=== PATIENT | male | born 1995 | race Caucasian/White ===

== ENCOUNTER 2019-06-18 23:34 | Observation (INO) ==
--- OUTSIDE RECORDS SUMMARY | 2019-06-18 23:37 | External Medical Summary | Continuity of Care Document ---
:1995 Author Name Lela Bashir, Provider Address Unavailable Unavailable , Care Team Providers Name Role Phone [facility], Nursing Station Unavailable [email or web address] PCP, UNKNOWN Unavailable Unavailable Problems Active medical history not documented Allergies and Adverse Reactions Allergy history not documented Medications Medications not documented Procedures Procedures not documented Immunizations Immunizations not documented Plan of Treatment Planned Observations Planned Goals not documented Results No Known Results Results not documented Encounters Appointment; [facility] Nursing Station 31-Jul-2018 11:45 Encounter Diagnosis: Problem not documented Appointment; [facility], Nursing Station 30-Jun-2018 9:20 Encounter Diagnosis: Problem not documented Appointment; [facility], Nursing Station 06-Sep-2018 11:30 Encounter Diagnosis: Problem not documented
[2019-06-18] MEDS ORDERED: SODIUM CHLORIDE 0.9% 1000ML 1,000 ML IV ONE ×2 (23:58→23:59)
[2019-06-19 00:25] LABS: Base Excess VBG -0.4 mEq/L; Basophils # (auto) 0.02 K/uL (0-0.2); Basophils % (auto) 0.2 %; Eosinophils # (auto) 0.07 K/uL (0-0.5); Eosinophils % (auto) 0.8 %; HCO3 VBG 24 mmol/L; Hematocrit (blood only) 36.3 % (42-52); Immature Granulocytes # (auto) 0.03 K/uL (0.00-0.02); Immature Granulocytes % (auto) 0.3 %; Lymphocytes # (auto) 2.49 K/uL (1.2-3.4); Lymphocytes % (auto) 27.8 %; Mean Corpuscular Hgb Conc 35.8 g/dL (32-36); Mean Corpuscular Volume 88.3 fL (80-100); Mean Platelet Volume 10.6 fL (7.4-10.4); Monocytes # (auto) 0.52 K/uL (0.11-0.59); Monocytes % (auto) 5.8 %; Neutrophils # (auto) 5.83 K/uL (1.4-6.5); Neutrophils % (auto) 65.1 %; Oxygen Saturation VBG 91.7 %; PCO2 VBG 40 mmHg (38-50); PO2 VBG 65 mmHg; Platelet Count 234 K/uL (130-400); RDW Coefficient of Variation 12.1 % (11.5-14.5); RDW Standard Deviation 38.9 fL (36.4-46.3); Red Blood Count 4.11 M/uL (4.7-6.1); White Blood Count 8.96 K/uL (4.8-10.8); pH VBG 7.41 (7.36-7.41)
[2019-06-19 00:43] LABS: Alanine Aminotransferase 16 U/L (12-78); Albumin Level 3.8 gm/dl (3.4-5.0); Aspartate Aminotransferase 10 U/L (15-37); Bilirubin Direct < 0.1 mg/dl (0-0.2); Blood Urea Nitrogen 13 mg/dl (7-18); Calcium 7.7 mg/dl (8.5-10.1); Carbon Dioxide 25 mmol/L (21-32); Chloride 103 mmol/L (98-107); Creatinine Clr Calc Pharmacy 100.7 ml/min; Est GFR (African American) 103.8; Est GFR (Non-African American) 89.5; Glucose 234 mg/dl (70-99); Magnesium 1.5 mg/dl (1.8-2.4); Potassium 3.2 mmol/L (3.5-5.1); Sodium 138 mmol/L (136-145)
[2019-06-19 00:46] LABS: D Dimer < 190 ug/L FEU (0-500)
[2019-06-19 00:54] LABS: Alkaline Phosphatase 51 U/L (45-117); Bilirubin,Total 0.2 mg/dl (0.2-1); Creatine Kinase 100 U/L (39-308); Total Protein 6.7 gm/dl (6.4-8.2); Troponin I < 0.015 ng/ml (0-0.045)
[2019-06-19] MEDS ORDERED: SODIUM CHLORIDE 0.9% 1000ML 1,000 ML IV ONE (01:04)
[2019-06-19] MEDS ORDERED: MAGNESIUM SULFATE / D5W 1 GM/100 ML BAG IV STA ×2 (02:29→04:44)
[2019-06-19] MEDS ORDERED: POTASSIUM CHLORIDE 20 MEQ TABCR PO STA (02:29)
[2019-06-19] MEDS ORDERED: SODIUM CHLORIDE 0.9% 1000ML 1,000 ML IV SCH (03:08)
[2019-06-19] MEDS ORDERED: ONDANSETRON INJ 2 MG/ML 2 ML VIAL IV PRN (03:08)
[2019-06-19] MEDS ORDERED: ACETAMINOPHEN 325 MG TAB PO PRN (03:08)
[2019-06-19] MEDS ORDERED: NITROGLYCERIN SL 0.4 MG/TAB TAB SL PRN (03:08)
--- NOTE | 2019-06-19 04:03 | History and Physical Report ---
DATE OF ADMISSION: 06/19/2019 CHIEF COMPLAINT: Weakness, palpitations, near syncope. HISTORY OF PRESENT ILLNESS: This is a 23-year-old male with no significant past medical history, who around 10:00 p.m. last night felt nauseous, not feeling well, palpitations, near passing out, and came to the ER and he was found to be tachycardic, heart rate in the 130s, blood pressure was slightly elevated, and he was afebrile, saturating fine. No leukocytosis. Hemoglobin 13. Venous blood gas was okay. Potassium was 3.2 and magnesium was 1.5, but lactate was 3.1. Blood sugar was 234 and after about 2 liters of fluids, his tachycardia improved and he is currently hemodynamically stable, feeling better. The patient says he drank about 4 bottles of sodas today and he generally does not drink sodas and it has caffeine in it and they were regular sodas. He thinks he might have been dehydrated. Denies any fever, chills. No chest pain, no shortness of breath, no cough, no headache. During the episode, he felt slightly dizzy. No blurred visions. No earache, no runny nose, no sore throat, no difficulty swallowing. Appetite is okay. Normal bowel and bladder movements. Denies any hematuria or dysuria. No hematochezia or black stools. No swelling in the legs, no rash. No family history of diabetes. ALLERGIES: No known drug allergies. PAST MEDICAL HISTORY: None. PAST SURGICAL HISTORY: None. FAMILY HISTORY: Grandfather had cancer. SOCIAL HISTORY: No smoking, alcohol rarely. REVIEW OF SYSTEMS: As per HPI. Rest of the review of systems negative. PHYSICAL EXAMINATION: GENERAL: The patient is of moderate build, not in acute distress. VITAL SIGNS: Temperature 36.7, pulse 90, respiratory rate 20, blood pressure 120/64, oxygen 98% on room air. HEENT: No pallor, no icterus. Pupils are equal, round, reactive to light. NECK: No JVD, no neck masses, no carotid bruits. CARDIOVASCULAR: S1, S2 heard, regular rate and rhythm, no murmur, no gallop. RESPIRATORY SYSTEM: Normal AP diameter. No accessory muscle use. No wheezing, no crackles. ABDOMEN: Soft, bowel sounds present, nontender. No distention. CENTRAL NERVOUS SYSTEM: Cranial nerves II-XII grossly intact. Nonfocal. EXTREMITIES: No edema, no erythema. LABORATORY DATA: WBC 8.9, hemoglobin 13, hematocrit 36.3, platelets 234. D-dimer less than 190. Venous blood gas, pH of 7.4, pCO2 of 40, pO2 of 65, bicarbonate 24, oxygen 91%. Sodium 138, potassium 3.2, chloride 103, bicarbonate 25, BUN 13, creatinine 1.1, serum glucose 234. Lactate 3.1, calcium 7.7, magnesium 1.5, total bilirubin 0.2, direct bilirubin less than 0.1, AST 10, ALT 16, alkaline phosphatase 51, total creatinine kinase 100. Troponin I less than 0.015. TSH 1.5. IMAGING DATA: Chest x-ray: No acute findings. EKG: Sinus tachycardia with a short NE at the rate of 143, incomplete right bundle branch block, no previous EKGs available. ASSESSMENT AND PLAN: This is a 23-year-old male who presents with weakness, tachycardia, near syncope. 1. Tachycardia, near syncope, weakness, nausea. Symptoms improved after 2 L of IV fluids in the ER. Hemodynamically currently stable. Continue normal saline at 125 mL per hour. He says he drank about 4 bottles of regular soda today and he does not drink them usually, which has caffeine in it. Caffeine induced tachycardia?. We will also check urine drug screen. Lactic acid elevated at 3.1. We will follow the repeat lactic acid. Doesn't seem to having infection. We will hold the antibiotics for now. We will monitor in the med/surg tele. 2. Elevated lactic acid, etiology unclear at this time. It could be from from tachycardia.On IV fluids. We will follow the repeat levels and closely monitor. 3. Hyperglycemia, blood sugar 231. He says there is no family history of diabetes. The patient says he drank 4 bottles of regular soda. We will place him on diabetic diet. Follow hemoglobin A1c levels. 4. Anemia. Hb 13.Borderline low. No obvious bleeding. Normal MCV.Will follow Hemoccult stool and iron studies, vitamin b12 and folate levels.. 4. Deep venous thrombosis prophylaxis, sequential compression devices. DISPOSITION: Observation in med/surg tele. Level 1 full code. Expect to discharge home and follow with his family doctor. Level 1 full code. MTDD
--- NOTE | 2019-06-19 04:37 | Emergency Department Note ---
Entered by Eyal Rendon acting as a scribe for ED Provider Note Name: Pawan Mike Age: 23, male Arrives Via: Walk in Informant: Patient CC: Weakness HPI: The patient is a 23 year old male who presents to the emergency department with complaints of constant weakness beginning at 2200 tonight. The patient states that he became weak and lightheaded tonight at 2200 when he was sitting down and watching a video. He notes that he feels as though he is going to lose consciousness. He also complains of some mild chest pain. He reports that he has not had any similar symptoms in the past. He denies any rhinorrhea, fevers, SOB, and abdominal pain. The patient states that he drank a lot of soda today, but he denies any caffeine pill use. He notes that he was drinking alcohol this weekend, but he reports that he did not drink any more than usual. He denies any drug use, smoking, and he states that he has not been working out recently. He notes that he does not have any family history of diabetes and thyroids disorders. ROS: See above HPI for pertinent positives & negatives. A total of 10 systems reviewed and were otherwise negative. Past Medical History: None Past Surgical History: None Family History: None Social History: Drinks alcohol, does not smoke cigarettes or do drugs Home Medications: None Allergies: None Physical: Vitals: BP 150/80, Pulse 139, Resp 18, Temp 98.1 F, O2 Sat 98 Exam: GENERAL: Patient is unwell appearing and in mild distress, mildly anxious appearing. EYES: No scleral icterus, unremarkable pupils. ENT: Mucous membranes dry, no nasal congestion. NECK: No masses appreciated, no meningismus, trachea is midline. RESPIRATORY: No dyspnea. Clear to auscultation and equal bilaterally. No wheeze, no rhonchi. CARDIOVASCULAR: Regular rhythm and tachycardic. No murmurs, rubs, gallops appreciated. GASTROINTESTINAL: Abdomen soft, non-tender, no peritonitis. Bowel sounds positive. No masses appreciated. BACK: No midline tenderness, no CVA tenderness EXTREMITIES: Normal motion all extremities, no cyanosis, no edema. NEUROLOGIC: Alert and oriented, no acute motor or sensory deficits, no focal weakness, cranial nerves grossly intact. SKIN: No rash, no jaundice, no diaphoresis. ED Course: Prior Medical Record, Triage/Nursing Notes, Medications, Allergies reviewed by Me 2354: The patient was evaluated in room A12. A complete history and physical exam was performed. 0037: I reevaluated and updated the patient. He is starting to feel a little better. His heart rate is down to the 110s from the 140s earlier. He has no other complaints. 0101: Upon reevaluation, the patient is stable. I discussed the findings and the treatment plan with the patient. He expresses agreement and understanding. [facility] The patient will be evaluated for further management. Vital Signs: reviewed and remarkable for wnl Labs: Reviewed and remarkable for lactic acidosis, hyperglycemia Interventions: saline lock, nss bolus 3 L IV Imaging: X ray results are stated below per my interpretation: Chest: 1 view: No infiltrate, no effusion, normal cardiac border. EKG: Per My Interpretation: Indication Tachycardia: Sinus Tach 143 no ectopy no ischemia. No previous for comparison Consults: 0101: I reviewed the patient's case with Dr. Patino - Hospitalist, [facility]. He will evaluate the patient for further management. Blood pressure: Elevated - Berino to be Situation. Disposition: Hospitalization Differentials: Differential: NSR, SVT, PACs, PVCs, Cardiac Dysrhythmia, Endocrine Dysfunction, Electrolyte/Metabolic Abnormality, Pulmonary Embolism, Infectious, GI, amongst other pathologies Entertained. Medical Decision Making: Pleasant 23 yr old male ill appearing, tachycardic and dehydrated. EKG with sinus tach. Given 3 L NSS bolus and HR finally improving. Labs with elevated lactate though no fevers, wbc elevation nor clear evidence of infection so will hold on abx. May be dehydration related. I do not feel this is SVT nor is there evidence of PE. Glucose elevated of uncertain etiology and may be stress response, though new onset DM possible. Will hold on insulin given fluid hydration. VBG looks OK and I think he is not in dka. Hospitalist to evaluate further. Impression: Generalized weakness, lactic acidosis, tachycardia, hyperglycemia Jared Linda MD The scribe's documentation has been prepared under my direction and personally reviewed by me in its entirety. I confirm that the note above accurately reflects all work, treatment, procedures, and medical decision making performed by me. 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: Yes Beliefs That Will Affect Care: None Current Living Situation: Parent Other Information That Helps Us Care for You: No Feels Safe at Home: Yes Safety Concerns: Feels Safe At This Time Smoking Status: Never smoker Do You Dip or Chew Tobacco: No ; Hx Alcohol Use: Yes Alcohol type: beer and hard liquor Hx Substance Use: No Results & Data Vital Signs Vital Signs - 24 hr 06/18/19 23:42 06/19/19 00:16 06/19/19 01:21 Temperature 36.7 C Temperature Source Oral Sepsis Recent Fever Within 48 Hours No Sepsis Action Taken by Nursing No Action Required Pulse Rate 139 H Pulse Rate [Right] 127 H 90 Pulse Rhythm [Right] Regular Regular Pulse Strength [Right] Normal Normal Respiratory Rate 18 20 20 Respiratory Effort / Characteristics Non-Labored Non-Labored Spontaneous Non-Labored Spontaneous Respiratory Depth Normal Normal Normal Blood Pressure 150/80 H Blood Pressure [Right Arm] 123/75 123/64 Blood Pressure Mean 103 Blood Pressure Mean [Right Arm] 91 83 Pulse Oximetry 98 98 98 Oxygen Delivery Method Room Air Room Air Room Air Home Medications Current Medication List: was personally reviewed by me Laboratory Data Attestation: I reviewed the patient's lab results. Result diagrams: 06/19/19 00:05 06/19/19 00:05 Lab Results 06/19/19 06/19/19 06/19/19 Range/Units 00:05 00:05 00:05 WBC 8.96 (4.8-10.8) K/uL RBC 4.11 L (4.7-6.1) M/uL Hgb 13.0 L (14.0-18.0) g/dL Hct 36.3 L (42-52) % MCV 88.3 (80-100) fL MCH 31.6 (25-34) pg MCHC 35.8 (32-36) g/dL RDW Std Deviation 38.9 (36.4-46.3) fL RDW Coeff of [place] 12.1 (11.5-14.5) % Plt Count 234 (130-400) K/uL MPV 10.6 H (7.4-10.4) fL Immature Gran % (Auto) 0.3 % Neut % (Auto) 65.1 % Lymph % (Auto) 27.8 % [place] % (Auto) 5.8 % Eos % (Auto) 0.8 % Baso % (Auto) 0.2 % Immature Gran # (Auto) 0.03 H (0.00-0.02) K/uL Neut # (Auto) 5.83 (1.4-6.5) K/uL Lymph # (Auto) 2.49 (1.2-3.4) K/uL [place] # (Auto) 0.52 (0.11-0.59) K/uL Eos # (Auto) 0.07 (0-0.5) K/uL Baso # (Auto) 0.02 (0-0.2) K/uL D-Dimer < 190 (0-500) ug/L FEU VBG pH (7.36-7.41) VBG pCO2 (38-50) mmHg VBG pO2 mmHg VBG HCO3 mmol/L VBG O2 Saturation % VBG Base Excess mEq/L Sodium 138 (136-145) mmol/L Potassium 3.2 L (3.5-5.1) mmol/L Chloride 103 (98-107) mmol/L Carbon Dioxide 25 (21-32) mmol/L Anion Gap 10.0 (3-11) BUN 13 (7-18) mg/dl Creatinine 1.16 (0.6-1.4) mg/dl Est Cr Clr Drug Dosing 100.7 ml/min Est GFR ( Amer) 103.8 Est GFR (Non-Af Amer) 89.5 BUN/Creatinine Ratio 11.0 (10-20) Glucose 234 H (70-99) mg/dl Lactate (0.4-2.0) mmol/L Calcium 7.7 L (8.5-10.1) mg/dl Magnesium 1.5 L (1.8-2.4) mg/dl Total Bilirubin 0.2 (0.2-1) mg/dl Direct Bilirubin < 0.1 (0-0.2) mg/dl AST 10 L (15-37) U/L ALT 16 (12-78) U/L Alkaline Phosphatase 51 (45-117) U/L Total Creatine Kinase 100 (39-308) U/L Troponin I < 0.015 (0-0.045) ng/ml Total Protein 6.7 (6.4-8.2) gm/dl Albumin 3.8 (3.4-5.0) gm/dl TSH 1.540 (0.300-4.500) uIu/ml 06/19/19 06/19/19 Range/Units 00:05 00:05 WBC (4.8-10.8) K/uL RBC (4.7-6.1) M/uL Hgb (14.0-18.0) g/dL Hct (42-52) % MCV (80-100) fL MCH (25-34) pg MCHC (32-36) g/dL RDW Std Deviation (36.4-46.3) fL RDW Coeff of [place] (11.5-14.5) % Plt Count (130-400) K/uL MPV (7.4-10.4) fL Immature Gran % (Auto) % Neut % (Auto) % Lymph % (Auto) % [place] % (Auto) % Eos % (Auto) % Baso % (Auto) % Immature Gran # (Auto) (0.00-0.02) K/uL Neut # (Auto) (1.4-6.5) K/uL Lymph # (Auto) (1.2-3.4) K/uL [place] # (Auto) (0.11-0.59) K/uL Eos # (Auto) (0-0.5) K/uL Baso # (Auto) (0-0.2) K/uL D-Dimer (0-500) ug/L FEU VBG pH 7.41 (7.36-7.41) VBG pCO2 40 (38-50) mmHg VBG pO2 65 mmHg VBG HCO3 24 mmol/L VBG O2 Saturation 91.7 % VBG Base Excess -0.4 mEq/L Sodium (136-145) mmol/L Potassium (3.5-5.1) mmol/L Chloride (98-107) mmol/L Carbon Dioxide (21-32) mmol/L Anion Gap (3-11) BUN (7-18) mg/dl Creatinine (0.6-1.4) mg/dl Est Cr Clr Drug Dosing ml/min Est GFR ( Amer) Est GFR (Non-Af Amer) BUN/Creatinine Ratio (10-20) Glucose (70-99) mg/dl Lactate 3.1 H* (0.4-2.0) mmol/L Calcium (8.5-10.1) mg/dl Magnesium (1.8-2.4) mg/dl Total Bilirubin (0.2-1) mg/dl Direct Bilirubin (0-0.2) mg/dl AST (15-37) U/L ALT (12-78) U/L Alkaline Phosphatase (45-117) U/L Total Creatine Kinase (39-308) U/L Troponin I (0-0.045) ng/ml Total Protein (6.4-8.2) gm/dl Albumin (3.4-5.0) gm/dl TSH (0.300-4.500) uIu/ml Administered Medications Sodium Chloride (Nss 1000ml) 1,000 mls @ 125 mls/hr IV .Q8H MARTHA Stop: 07/19/19 03:07 Last Admin: 06/19/19 03:44 Dose: 125 mls/hr Documented by: [id number] Discontinued Medications Sodium Chloride (Nss 1000ml) 1,000 mls @ 999 mls/hr IV .Q1H1M ONE Stop: 06/19/19 00:58 Last Infusion: 06/19/19 01:19 Dose: 0 mls/hr Documented by: [id number] Admin: 06/19/19 00:15 Dose: 999 mls/hr Documented by: [id number] Sodium Chloride (Nss 1000ml) 1,000 mls @ 999 mls/hr IV .Q1H1M ONE Stop: 06/19/19 00:59 Last Infusion: 06/19/19 01:19 Dose: 0 mls/hr Documented by: [id number] Admin: 06/19/19 00:15 Dose: 999 mls/hr Documented by: [id number] Sodium Chloride (Nss 1000ml) 1,000 mls @ 999 mls/hr IV .Q1H1M ONE Stop: 06/19/19 02:04 Last Infusion: 06/19/19 02:54 Dose: 0 mls/hr Documented by: [id number] Admin: 06/19/19 01:49 Dose: 999 mls/hr Documented by: [id number] Magnesium Sulfate/Dextrose (Magnesium Sulfate / D5w) 1 gm in 100 mls @ 100 mls/hr IV Q1H STA Stop: 06/19/19 03:28 Last Infusion: 06/19/19 03:44 Dose: 0 mls/hr Documented by: [id number] Admin: 06/19/19 02:40 Dose: 100 mls/hr Documented by: [id number] Potassium Chloride (Klor-Con M20) 40 meq PO NOW STA Stop: 06/19/19 02:30 Last Admin: 06/19/19 02:40 Dose: 40 meq Documented by: [id number] Blood Pressure Blood Pressure Findings: Elevated blood pressure Blood Pressure Disposition: elevated BP felt to be situational Discharge Plan Visit Data *Final* Discharge Date/Time: 06/19/19 02:45 Chief Complaint: Weakness Stated Complaint: WEAKNESS,FEELS LIKE PASSING OUT,NAUSEA ED Provider: Jared Linda Discharge Problem: Generalized weakness, Acidosis, lactic, Tachycardia, Hyperglycemia Patient Disposition: Admitted As Inpatient Discharge Instructions Interventions: ED Discharge Assessment Last Done: 06/19/19 02:45 The scribe's documentation has been prepared under my direction and personally reviewed by me in its entirety. I confirm that the note above accurately reflects all work, treatment, procedures, and medical decision making performed by me.
[2019-06-19 05:23] LABS: Basophils # (auto) 0.02 K/uL (0-0.2); Basophils % (auto) 0.2 %; Eosinophils # (auto) 0.03 K/uL (0-0.5); Eosinophils % (auto) 0.4 %; Hematocrit (blood only) 33.7 % (42-52); Hemoglobin 11.8 g/dL (14.0-18.0); Immature Granulocytes # (auto) 0.01 K/uL (0.00-0.02); Immature Granulocytes % (auto) 0.1 %; Lymphocytes # (auto) 1.75 K/uL (1.2-3.4); Lymphocytes % (auto) 20.7 %; Mean Corpuscular Volume 88.7 fL (80-100); Mean Platelet Volume 10.2 fL (7.4-10.4); Monocytes # (auto) 0.44 K/uL (0.11-0.59); Monocytes % (auto) 5.2 %; Neutrophils # (auto) 6.21 K/uL (1.4-6.5); Neutrophils % (auto) 73.4 %; Platelet Count 184 K/uL (130-400); RDW Standard Deviation 39.2 fL (36.4-46.3); White Blood Count 8.46 K/uL (4.8-10.8)
[2019-06-19 05:53] LABS: Blood Urea Nitrogen 9 mg/dl (7-18); Calcium 7.5 mg/dl (8.5-10.1); Carbon Dioxide 25 mmol/L (21-32); Chloride 112 mmol/L (98-107); Creatinine Clr Calc Pharmacy 151.8 ml/min; Est GFR (African American) > 150.0; Est GFR (Non-African American) 129.7; Glucose 117 mg/dl (70-99); Magnesium 2.5 mg/dl (1.8-2.4); Potassium 4.1 mmol/L (3.5-5.1); Sodium 143 mmol/L (136-145)
[2019-06-19 06:02] LABS: Estimated Average Glucose 105 mg/dl; Hemoglobin A1C 5.3 % (4.5-5.6)
[2019-06-19 06:04] LABS: Ferritin 174.6 ng/ml (8-388); Iron 38 mcg/dl (35-175); Transferrin 167 mg/dl (200-360)
[2019-06-19 06:37] LABS: Amphetamines+Metham, Urine Neg (Neg); Barbiturates, Urine Neg (Neg); Benzodiazepine, Urine Neg (Neg); Cocaine, Urine Neg (Neg); MDMA (Ecstacy), Urine Neg (Neg); Methadone, Urine Neg (Neg); Opiate, Urine Neg (Neg); Phencyclidine, Urine Neg (Neg)
--- NOTE | 2019-06-19 07:19 | XRay Report ---
XR chest 1V portable CLINICAL HISTORY: tachycardia COMPARISON STUDY: No previous studies for comparison. FINDINGS: Lung volumes are normal. Lungs are clear. There is no pneumothorax or pleural effusion. Car diac size is normal. Mediastinal contours are normal. There is no evidence for pulmonary edema. IMPRESSION: No acute cardiopulmonary findings. Electronically signed by: Adan Guillermo M.D. 06/19/2019 7:17 AM
[2019-06-19 07:54] LABS: Folate (Folic Acid) 8.67 ng/ml (>5.38)
--- NOTE | 2019-06-19 15:50 | Hospitalist Progress Note ---
Date of Service June 19, 2019 Assessment & Plan (1) Generalized weakness: presyncope Tachycardia (resolved) currently with bradycardia elevated lactic acid (now resolved) Hyperglycemia -23-year-old male who presents with weakness, tachycardia, near syncope -as per history and physical, concern for Caffeine induced tachycardia -tachycardia and lactic acid of 3.1 and hyperglycemia of 231 resolved with IV fluids\ -HbA1c 5.3 -hemodilutional anemia Hgb 13 and trending to 11.8 after IV fluids. No obvious bleeding. no iron deficiency; normal levels of vitamin b12 and folate levels and TSH -06/19/19 day time assessments: Patient seen and examined in morning and afternoon today. Since presentation last night, patient's tachycardia has resolved, lactic acid level normalized after IV fluids, and blood glucose normalized. Telemetry monitoring noted for bradycardia in the 50s. Patient was seen in the bed twice. He reports that he has been able to ambulate during the day but still feels weak and he prefers for further monitoring in the hospital. Patient denies chest pain or palpitations or shortness of breath today. Patient reports that over the weekend he was doing social events and besides beverages with caffeine it would appear that patient may have drank other types of potenti ally dehydrating beverages. Patient denies recreational drug use recently. His urine analysis is positive for THC. Patient denies dizziness or lightheadedness currently and no headache. No vomiting today. He ate the meals. He reports still feeling weaker than baseline -after discussing with patient, patient prefers to stay for further telemetry monitoring because of the bradycardia Deep venous thrombosis prophylaxis, sequential compression devices. Subjective Patient seen and examined in morning and afternoon today. Since presentation last night, patient's tachycardia has resolved, lactic acid level normalized after IV fluids, and blood glucose normalized. Telemetry monitoring noted for bradycardia in the 50s. Patient was seen in the bed twice. He reports that he has been able to ambulate during the day but still feels weak and he prefers for further monitoring in the hospital. Patient denies chest pain or palpitations or shortness of breath today. Patient reports that over the weekend he was doing social events and besides beverages with caffeine it would appear that patient may have drank other types of potentially dehydrating beverages. Patient denies recreational drug use recently. His urine analysis is positive for THC. Patient denies dizziness or lightheadedness currently and no headache. No vomiting today. He ate the meals. He reports still feeling weaker than baseline Physical Exam Constitutional: comfortable Eyes: PERRL, conjunctivae normal, anicteric sclerae EOM intact bilaterally ENMT: external ear and nose normal, oropharynx normal Neck: normal visual inspection Respiratory: normal respiratory effort, lungs clear to auscultation Cardiovascular: Rate/Rhythm: + bradycardic Gastrointestinal (Abdomen): normal bowel sounds, soft, nontender, no hepatosplenomegaly Musculoskeletal: Head/Neck/Chest: normocephalic and head atraumatic Neurologic: PERRL, EOMI, accommodation nl, no face palsy, no dysarthria CN's II-XI intact bilaterally Psychiatric: A+Ox3, euthymic affect Results & Data Vital Signs (Past 12 Hours) Vital Signs Temp Pulse Resp BP BP Pulse Ox 06/19/19 15:19 36.5 C 58 L 18 118/75 100 06/19/19 11:18 36.7 C 83 18 122/73 100 06/19/19 07:25 36.5 C 57 L 18 104/68 100 06/19/19 03:59 36.7 C 82 18 118/72 98
[2019-06-20 07:18] LABS: Hematocrit (blood only) 39.9 % (42-52); Mean Corpuscular Hgb Conc 35.1 g/dL (32-36); Mean Corpuscular Volume 89.1 fL (80-100); Mean Platelet Volume 10.5 fL (7.4-10.4); Platelet Count 200 K/uL (130-400); RDW Coefficient of Variation 12.1 % (11.5-14.5); Red Blood Count 4.48 M/uL (4.7-6.1); White Blood Count 4.57 K/uL (4.8-10.8)
[2019-06-20 08:07] LABS: Albumin Globulin Ratio 1.4 (0.9-2); BUN Creatinine Ratio 6.8 (10-20); Bilirubin,Total 0.8 mg/dl (0.2-1); Calcium 9.1 mg/dl (8.5-10.1); Creatinine Clr Calc Pharmacy 116.4 ml/min; Est GFR (African American) 132.1; Globulin 2.8 gm/dl (2.5-4.0); Potassium 3.7 mmol/L (3.5-5.1); Total Protein 6.8 gm/dl (6.4-8.2)
[2019-06-20 08:33] LABS: Basophils # (auto) 0.02 K/uL (0-0.2); Basophils % (auto) 0.4 %; Eosinophils % (auto) 2.2 %; Immature Granulocytes # (auto) 0.01 K/uL (0.00-0.02); Immature Granulocytes % (auto) 0.2 %; Lymphocytes # (auto) 2.29 K/uL (1.2-3.4); Lymphocytes % (auto) 50.1 %; Monocytes # (auto) 0.39 K/uL (0.11-0.59); Monocytes % (auto) 8.5 %; Neutrophils # (auto) 1.76 K/uL (1.4-6.5); Neutrophils % (auto) 38.6 %
[2019-06-20] MEDS ORDERED: SODIUM CHLORIDE 0.9% 1000ML 1,000 ML IV SCH (11:15)
--- NOTE | 2019-06-20 11:21 | Hospitalist Progress Note ---
Date of Service June 20, 2019 Assessment & Plan (1) Generalized weakness: presyncope Tachycardia (resolved) currently with bradycardia elevated lactic acid (now resolved) Hyperglycemia -23-year-old male who presents with weakness, tachycardia, near syncope -as per history and physical, concern for Caffeine induced tachycardia -tachycardia and lactic acid of 3.1 and hyperglycemia of 231 resolved with IV fluids -HbA1c 5.3 -hemodilutional anemia Hgb 13 and trending to 11.8 after IV fluids. No obvious bleeding. no iron deficiency; normal levels of vitamin b12 and folate levels and TSH -06/19/19 day time assessments: Patient seen and examined in morning and afternoon today. Since presentation last night, patient's tachycardia has resolved, lactic acid level normalized after IV fluids, and blood glucose normalized. Telemetry monitoring noted for bradycardia in the 50s. Patient was seen in the bed twice. He reports that he has been able to ambulate during the day but still feels weak and he prefers for further monitoring in the hospital. Patient denies chest pain or palpitations or shortness of breath today. Patient reports that over the weekend he was doing social events and besides beverages with caffeine it would appear that patient may have drank other types of potentially dehydrating beverages in more than moderate alcohol use on 06/14/19 and Tuesday06/18/19. Patient denies recreational drug use recently. His urine analysis is positive for THC. -06/20/19: telemetry continues to show episodes of bradycardia with lows of around 39 beats per minute in the AM; EKG this AM subsequently of 57 beats per minute with marked sinus arrythmia. 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 patient denies being an intense athlete and last time playing organized sports in 2 years. patient denies cardiac history. we discussed his health extensively and after talking with patient, would like cardiology consult at this time Deep venous thrombosis prophylaxis, sequential compression devices. Subjective no acute events overnight. patient denies distress or any symptoms of lightheadedness or dizziness or presyncope symptoms or chest discomfort, able to eat meals, no vomiting, no pain elsewhere. 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 Physical Exam Constitutional: comfortable Eyes: PERRL, conjunctivae normal, anicteric sclerae EOM intact bilaterally ENMT: external ear and nose normal, oropharynx normal Neck: normal visual inspection Respiratory: normal respiratory effort, lungs clear to auscultation Cardiovascular: Rate/Rhythm: regular rate and regular rhythm Gastrointestinal (Abdomen): normal bowel sounds, soft, nontender, no hepatosplenomegaly Musculoskeletal: Head/Neck/Chest: normocephalic and head atraumatic Neurologic: PERRL, EOMI, accommodation nl, no face palsy, no dysarthria CN's II-XI intact bilaterally Psychiatric: A+Ox3, euthymic affect Results & Data Vital Signs (Past 12 Hours) Vital Signs Temp Pulse Pulse Resp BP Pulse Ox 06/20/19 11:12 36.4 C L 87 18 115/66 99 06/20/19 10:32 80 06/20/19 07:42 80 06/20/19 07:26 36.5 C 56 L 18 111/73 98 06/19/19 23:46 36.7 C 62 20 120/71 98 06/19/19 23:37 46 L
[2019-06-20] MEDS ORDERED: POTASSIUM CHLORIDE 20 MEQ TABCR PO STA (11:49)
--- NOTE | 2019-06-20 14:27 | Consultation Report ---
DATE OF ADMISSION: 06/20/2019 CONSULTATION REQUESTED BY: Dr. Ortega REASON FOR CONSULTATION: Bradycardia. HISTORY OF PRESENT ILLNESS: Mr. Mike is a very pleasant 23-year-old healthy male who presented to [facility] on 06/19/2019 with complaints of palpitations, weakness and near syncope. He states that prior to presentation that day he drank 4 caffeinated sodas, which he has never done before and usually does not drink caffeine. Later that day, he started feeling his heart racing. He started getting a little lightheaded and feeling weak all over and became lightheaded to the point where he thought he might pass out when he stood up. Luckily, he did not lose consciousness. Upon presentation in the Emergency Department, he was found to be in sinus tachycardia into the 140s with significant electrolyte abnormalities and volume depletion. He was admitted to telemetry, received IV fluids with significant improvement of symptoms. Currently, he states he still feels a little weak, but his palpitations have resolved. Initially, his heart rates were significantly sinus tachycardic up in the 140s; however, then with fluid hydration, his rate came down. He had some episodes of sinus bradycardia with blocked PACs down in the 30s while sleeping. Otherwise currently, review of telemetry monitoring shows that he is in sinus arrhythmia with occasional PACs, blocked PACs and PVCs. There are no sustained arrhythmias and no signs of heart block. PAST SURGICAL HISTORY: Denies. PAST MEDICAL HISTORY: Denies. FAMILY HISTORY: Remarkable for a sister who underwent an ablation for an unknown arrhythmia in her late 20s. Denies any premature coronary artery disease or sudden cardiac . SOCIAL HISTORY: Denies any tobacco use. Rare alcohol. Does smoke marijuana rather regularly. No other illicit drug use. He is currently employed at [employer]. He is not . His girlfriend who is at the bedside. REVIEW OF SYSTEMS: As per HPI, all other review of systems reviewed and negative at this time. ALLERGIES: No known drug allergies. MEDICATIONS AN OUTPATIENT: None. PHYSICAL EXAMINATION: VITAL SIGNS: Temperature 36.4, pulse 87, respiratory rate 12, blood pressure 115/66. GENERAL: Awake, alert, oriented x3 in no acute distress. HEENT: Normocephalic, atraumatic. Pupils equal, round, reactive to light and accommodation. Extraocular muscles intact. Anicteric sclerae. Moist mucous membranes. NECK: No JVD, no bruit. CARDIOVASCULAR: Regular. No S4. Normal S1 and S2. No S3. No murmurs, rubs or gallops. PULMONARY: Clear to auscultation bilaterally. No rales, rhonchi, or wheezing. ABDOMEN: Bowel sounds x4, soft. No rebound, guarding, tenderness. No organomegaly. EXTREMITIES: No clubbing, cyanosis or edema. +2 pedal pulses bilaterally. SKIN: Warm and dry. TEST RESULTS: Initial EKG upon presentation independently reviewed at this time shows sinus tachycardia 143 beats per minute, underlying incomplete right bundle-branch block. Followup EKG on 06/19/2019 at 0648 shows sinus rhythm with occasional PVCs. Repeat EKG on 06/20/2019 at 0622 shows sinus bradycardia with marked sinus arrhythmia. Again, incomplete right bundle-branch block. Review of telemetry shows sinus rhythm with sinus bradycardia, marked sinus arrhythmia, occasional PACs and blocked PACs, occasional PVCs, no sustained arrhythmias. No signs of heart block. IMPRESSION: 1. Frequent ectopy after caffeine overdose. 2. Volume depletion with appropriate sinus tachycardia, resolved. 3. Electrolyte abnormalities secondary to #1. RECOMMENDATIONS: It was my pleasure to see Mr. Mike in consultation today. From a cardiac standpoint, I believe his heart rhythm and ectopy is directly due to his significant caffeine ingestion and volume depletion along with his electrolyte abnormalities. His magnesium has been repleted. His potassium stays at 3.7 currently and I will give him an extra dose of potassium chloride 40 mEq x1 now. I will order an echocardiogram to evaluate for any structural abnormalities; however, it is okay to discharge the patient from a cardiac standpoint, I will arrange for an outpatient ZIO patch monitor for 1 week through my office and follow up with me in approximately 6 weeks. I suspect that no further cardiac followup will be necessary after that. [place]
--- NOTE | 2019-06-20 16:25 | Discharge Summary ---
Date of Service June 20, 2019 Admission HPI Per Admitting Provider CONSULTATION REQUESTED BY: Dr. Ortega REASON FOR CONSULTATION: Bradycardia. HISTORY OF PRESENT ILLNESS: Mr. Mike is a very pleasant 23-year-old healthy male who presented to [facility] on 06/19/2019 with complaints of palpitations, weakness and near syncope. He states that prior to presentation that day he drank 4 caffeinated sodas, which he has never done before and usually does not drink caffeine. Later that day, he started feeling his heart racing. He started getting a little lightheaded and feeling weak all over and became lightheaded to the point where he thought he might pass out when he stood up. Luckily, he did not lose consciousness. Upon presentation in the Emergency Department, he was found to be in sinus tachycardia into the 140s with significant electrolyte abnormalities and volume depletion. He was admitted to telemetry, received IV fluids with significant improvement of symptoms. Currently, he states he still feels a little weak, but his palpitations have resolved. Initially, his heart rates were significantly sinus tachycardic up in the 140s; however, then with fluid hydration, his rate came down. He had some episodes of sinus bradycardia with blocked PACs down in the 30s while sleeping. Otherwise currently, review of telemetry monitoring shows that he is in sinus arrhythmia with occasional PACs, blocked PACs and PVCs. There are no sustained arrhythmias and no signs of heart block. PAST SURGICAL HISTORY: Denies. PAST MEDICAL HISTORY: Denies. FAMILY HISTORY: Remarkable for a sister who underwent an ablation for an unknown arrhythmia in her late 20s. Denies any premature coronary artery disease or sudden cardiac . SOCIAL HISTORY: Denies any tobacco use. Rare alcohol. Does smoke marijuana rather regularly. No other illicit drug use. He is currently employed at [employer]. He is not . His girlfriend who is at the bedside. REVIEW OF SYSTEMS: As per HPI, all other review of systems reviewed and negative at this time. ALLERGIES: No known drug allergies. MEDICATIONS AN OUTPATIENT: None. Admission Exam Per Admitting Provider VITAL SIGNS: Temperature 36.4, pulse 87, respiratory rate 12, blood pressure 115/66. GENERAL: Awake, alert, oriented x3 in no acute distress. HEENT: Normocephalic, atraumatic. Pupils equal, round, reactive to light and accommodation. Extraocular muscles intact. Anicteric sclerae. Moist mucous membranes. NECK: No JVD, no bruit. CARDIOVASCULAR: Regular. No S4. Normal S1 and S2. No S3. No murmurs, rubs or gallops. PULMONARY: Clear to auscultation bilaterally. No rales, rhonchi, or wheezing. ABDOMEN: Bowel sounds x4, soft. No rebound, guarding, tenderness. No organomegaly. EXTREMITIES: No clubbing, cyanosis or edema. +2 pedal pulses bilaterally. SKIN: Warm and dry. Principal Diagnosis presyncope Tachycardia (resolved) (Frequent ectopy after caffeine overdose and also Volume depletion with appropriate sinus tachycardia, resolved) currently with bradycardia elevated lactic acid (now resolved) Hyperglycemia (resolved) bicuspid aortic valve could not be ruled out by echocardiogram Discharge Exam Constitutional comfortable Eyes PERRL, conjunctivae normal, anicteric sclerae EOM intact bilaterally ENMT external ear and nose normal, oropharynx normal Neck normal visual inspection Respiratory normal respiratory effort, lungs clear to auscultation Cardiovascular Rate/Rhythm: regular rate and regular rhythm Gastrointestinal (Abdomen) normal bowel sounds, soft, nontender, no hepatosplenomegaly Musculoskeletal Head/Neck/Chest: normocephalic and head atraumatic Neurologic PERRL, EOMI, accommodation nl, no face palsy, no dysarthria CN's II-XI intact bilaterally Psychiatric A+Ox3, euthymic affect Discharge Data Allergies Allergy/AdvReac Type Severity Reaction Status Date / Time No Known Allergies Allergy Unverified 06/19/19 00:32 Consultations 06/19/19 01:04 ED Decision to Admit Stat 06/20/19 11:12 Consult Cardiology Routine Hospital Course (1) Generalized weakness: presyncope Tachycardia (resolved) (Frequent ectopy after caffeine overdose and also Volume depletion with appropriate sinus tachycardia, resolved) currently with bradycardia elevated lactic acid (now resolved) Hyperglycemia (resolved) bicuspid aortic valve could not be ruled out by echocardiogram -23-year-old male who presents with weakness, tachycardia, near syncope -as per history and physical, concern for Caffeine induced tachycardia -tachycardia and lactic acid of 3.1 and hyperglycemia of 231 resolved with IV fluids -HbA1c 5.3 -hemodilutional anemia Hgb 13 and trending to 11.8 after IV fluids. No obvious bleeding. no iron deficiency; normal levels of vitamin b12 and folate levels and TSH -06/19/19 day time assessments: Patient seen and examined in morning and afternoon today. Since presentation last night, patient's tachycardia has resolved, lactic acid level normalized after IV fluids, and blood glucose normalized. Telemetry monitoring noted for bradycardia in the 50s. Patient was seen in the bed twice. He reports that he has been able to ambulate during the day but still feels weak and he prefers for further monitoring in the hospital. Patient denies chest pain or palpitations or shortness of breath today. Patient reports that over the weekend he was doing social events and besides beverages with caffeine it would appear that patient may have drank other types of potentially dehydrating beverages in more than moderate alcohol use on 06/14/19 and Tuesday06/18/19. Patient denies recreational drug use recently. His urine analysis is positive for THC. -06/20/19: telemetry continues to show episodes of bradycardia with lows of around 39 beats per minute in the AM; EKG this AM subsequently of 57 beats per minute with marked sinus arrythmia. 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 patient denies being an intense athlete and last time playing organized sports in 2 years. patient denies cardiac history. we discussed his health extensively and after talking with patient, would like cardiology consult at this time patient was started again on IV fluids on 06/20/19 patient was evaluated by cardiology consult Dr. Patel who described patient's heart rate rhythm as due to "Frequent ectopy after caffeine overdose and also Volume depletion with appropriate sinus tachycardia, resolved." Patient's serum potassium today 3.7 and patient given additional potassium of 40 meq by cardiology. Election Assistant ordered echocardiogram which was completed with normal ejection fraction of 60 to 65 percent and no wall motion abnormality Echocardiogram could not rule out bicuspid aortic valve - discussed with patient that cardiology planned to have follow up as outpatient of 7 day Zio patch monitoring which can be obtained on 06/21/19 at [facility] clinic on [address] [place] [address] [place] [address] and 6 week follow up with cardiology clinic where Dr. Patel often sees patients on [facility] [address] [facility], [place] [address] Phone: Patient reports of lacking insurance and hospital case management assisted to apply for medical assistance. Patient has been counseled to avoid excessive alcohol or caffeine drinks and should also follow up with his primary care physician. Patient also advised that since echocardiogram could not rule bicuspid aortic, that even if he decides not to follow up with [facility] affiliated cardiology service, that he should discuss with outpatient medical provider on followup versus surveillance planning. Deep venous thrombosis prophylaxis, sequential compression devices; ambulation while in the hospital. Total Time Total Time Spent Total Time Spent (In Minutes): 40 minutes Total Time Includes: Examination of the Patient, Discharge Planning, Medication Reconciliation and Communication With Other Providers Discharge Plan Discharge Items Patient Disposition: Home - Self-Care Reason For Visit: PALPITATIONS, PRE-SYNCOPE Discharge Diagnosis: presyncope Tachycardia (resolved) (Frequent ectopy after caffeine overdose and also Volume depletion with appropriate sinus tachycardia, resolved) currently with bradycardia elevated lactic acid (now resolved) Hyperglycemia (resolved) bicuspid aortic valve could not be ruled out by echocardiogram Condition on Discharge: Good Goals: preventative health care Activity: Resume your previous activity Sexual Activity: When tolerated Exercise/Sports: As tolerated Driving/Machine Use: No limitations Weightbearing: Full weightbearing Non-emergency contact: Primary Care Provider and Election Assistant Call non-emergency contact if: you have any medication questions Follow-up/Referrals: PCP,NO [Primary Care Provider] - Diet: Regular Addtl Attending Provider Instructions: patient was evaluated by cardiology consult Dr. Patel who described patient's heart rate rhythm as due to "Frequent ectopy after caffeine overdose and also Volume depletion with appropriate sinus tachycardia, resolved." Patient's serum potassium today 3.7 and patient given additional potassium of 40 meq by cardiology. Election Assistant ordered echocardiogram which was completed with normal ejection fraction of 60 to 65 percent and no wall motion abnormality Echocardiogram could not rule out bicuspid aortic valve - discussed with patient that cardiology planned to have follow up as outpatient of 7 day Zio patch monitoring which can be obtained on 06/21/19 at [facility] clinic on [address] [place] [address] [place] [address] and 6 week follow up with cardiology clinic where Dr. Patel often sees patients on [facility] [address] , [place] [address] Phone: Patient reports of lacking insurance and hospital case management assisted to apply for medical assistance. Patient has been counseled to avoid excessive alcohol or caffeine drinks and should also follow up with his primary care physician. Patient also advised that since echocardiogram could not rule bicuspid aortic, that even if he decides not to follow up with [facility] cardiology service, that he should discuss with outpatient medical provider on followup versus surveillance planning. Pending Studies at Discharge: No Stand-Alone Forms: [facility] Medications and DC Order Prescriptions: No Action No Known Home Medications RF: 0 Discharge Orders: Discharge Order (Routine); Ordered 06/20/19 Ordered By: Jesus Ortega Admission Data Admit Date/Time: 06/19/19 02:24 Attending Provider: Jesus Ortega Admit Provider: Hollis Patino Primary Care Provider: PCP,NO Other Providers: Hollis Patino ; Az Patel
== END 2019-06-20 17:07 | disposition home or self-care (01) ==
LOC: ED 23:34 → 2N 23:34 → SUATTDRO 06-19 02:24 → 2N 06-19 02:45